=== PATIENT | female | born 1985 | race Native Hawaiian/Other Pacific Islander ===

== ENCOUNTER 2017-12-07 14:01 | Emergency (ER) | payer BC ==
[2017-12-07] MEDS ORDERED: Sodium Chloride 0.9% 1,000 ML IV STA ×2 (14:18→18:39)
--- NOTE | 2017-12-07 14:41 | ED PDOC ---
HPI: Chest Pain Time Seen by Provider: 12/07/17 14:16 Chief Complaint (Nursing): Chest Pain Chief Complaint (Provider): Chest Pain History Per: Patient History/Exam Limitations: no limitations Current Symptoms Are (Timing): Still Present Additional Complaint(s): 32 year old female presents to the emergency department with a complaint of an fast increased heart rate for the past week and chest tightness since last night , 12/06/2017. Patient is currently 21 weeks with twin gestation, . Denies leg swelling, leg pain, calf pain, cough, or fever. Past Medical History Reviewed: Historical Data, Nursing Documentation, Vital Signs Vital Signs: Last Vital Signs Temp 98.6 F 12/07/17 19:33 Pulse 114 H 12/07/17 19:33 Resp 18 12/07/17 19:33 BP 130/70 12/07/17 19:33 Pulse Ox 99 12/09/17 13:23 - Medical History PMH: No Chronic Diseases - Family History Family History: States: Unknown Family Hx - Living Arrangements Living Arrangements: With Family - Social History Current smoker - smoking cessation education provided: No - Home Medications Home Medications: Ambulatory Orders Medication Instructions Recorded No Known Home Med 12/07/17 - Allergies Allergies/Adverse Reactions: Allergies Allergy/AdvReac Type Severity Reaction Status Date / Time No Known Allergies Allergy Verified 12/07/17 14:09 Review of Systems ROS Statement: Except As Marked, All Systems Reviewed And Found Negative (As per HPI, otherwise negative) Constitutional: Negative for: Fever Cardiovascular: Positive for: Other (Chest tightness) Respiratory: Negative for: Cough Musculoskeletal: Negative for: Leg Pain (or swelling), Other (Calf pain) Physical Exam - Reviewed Nursing Documentation Reviewed: Yes Vital Signs Reviewed: Yes - Physical Exam Appears: Positive for: No Acute Distress Head Exam: Positive for: NORMAL INSPECTION Skin: Positive for: Normal Color, Warm, Dry Eye Exam: Positive for: Normal appearance Cardiovascular/Chest: Positive for: Tachycardia (with regular rhythm). Negative for: Murmur Respiratory: Positive for: Normal Breath Sounds. Negative for: Accessory Muscle Use, Respiratory Distress Gastrointestinal/Abdominal: Positive for: Normal Exam, Soft. Negative for: Tenderness Extremity: Positive for: Normal ROM. Negative for: Pedal Edema Neurologic/Psych: Positive for: Alert, Oriented (x3) - Laboratory Results Result Diagrams: 12/07/17 14:51 12/07/17 14:51 - ECG ECG Rhythm: Positive for: Sinus Tachycardia (122 bpm), Nonspecific Changes (T wave abnormalities) O2 Sat by Pulse Oximetry: 99 (RA) Pulse Ox Interpretation: Normal Medical Decision Making Medical Decision Making: Time: 1427 Initial Impression: Chest tightness in setting of known Initial Plan: EKG CMP TSH Troponin I CBC w/ diff D Dimer PTT & Prothrombin Sodium Chloride 1L IV Urinalysis Duplex US Reevaluation Discussed risks and benefits of CT with IV contrast. With included risks to fetus and differential of pulmonary embolism. Time: 1500 --Patient transferred to Dr. Vale LUQUE. --Pending Duplex US and decision on CT. Scribe Attestation: Documented by Jenifer Briggs, acting as a scribe for Lis Mueller MD. Provider Scribe Attestation: All medical record entries made by the Scribe were at my direction and personally dictated by me. I have reviewed the chart and agree that the record accurately reflects my personal performance of the history, physical exam, medical decision making, and the department course for this patient. I have also personally directed, reviewed, and agree with the discharge instructions and disposition. Disposition - Clinical Impression Clinical Impression: Chest pain, Hyperthyroidism affecting , Sinus tachycardia - Patient ED Disposition Is Patient to be Admitted: No - Disposition Referrals: Saul Turner MD [Staff Provider] - Disposition: Transfer of Care (Dr. Collazo) Disposition Time: 15:00 Condition: STABLE Additional Instructions: Return for worsening. Follow up with Dr Turner within 2-3 days. Instructions: Hyperthyroidism (Overactive Thyroid), Chest Pain, Sinus Tachycardia (DC) Patient Signed Over To: Jason Collazo
[2017-12-07 14:55] LABS: BASO % 0.2 % (0.0-2.0); EOS % 0.3 % (0.0-4.0); HEMOGLOBIN 11.3 g/dL (12.0-16.0); LYMPH # 1.3 K/uL (1.0-4.3); LYMPH % 11.8 % (20.0-40.0); MEAN CORPUSCULAR HEMOGLOBIN 31.8 pg (27.0-31.0); MEAN CORPUSCULAR HGB CONC 35.3 g/dL (33.0-37.0); MEAN PLATELET VOLUME 7.6 fl (7.2-11.7); MONO # 0.9 K/uL (0.0-0.8); MONO % 8.7 % (0.0-10.0); NEUT # 8.3 K/uL (1.8-7.0); RBC 3.55 Mil/uL (3.80-5.20); RED CELL DISTRIBUTION WIDTH 12.8 % (11.5-14.5); WHITE BLOOD COUNT 10.6 K/uL (4.8-10.8)
[2017-12-07 15:07] LABS: ALBUMIN 3.7 g/dL (3.5-5.0); ALT/SGPT 24 U/L (9-52); AST/SGOT 19 U/L (14-36); BLOOD UREA NITROGEN 5 mg/dl (7-17); CALCIUM 8.8 mg/dL (8.4-10.2); GFR AFRICAN-AMERICAN > 60; GFR NON-AFRICAN AMERICAN > 60
--- NOTE | 2017-12-07 15:16 | ED PDOC ---
- Laboratory Results Result Diagrams: 12/07/17 14:51 12/07/17 14:51 - ECG O2 Sat by Pulse Oximetry: 99 (RA) Pulse Ox Interpretation: Normal Medical Decision Making Medical Decision Making: Time: 1500 --Patient endorsed from Dr. Mueller to me. --Pending Duplex US and decision on CT. Time: 15:28 EXTREMITY US FINDINGS: COMMON FEMORAL VEIN: Right CFV: Unremarkable. Left CFV: Unremarkable. SUPERFICIAL FEMORAL VEIN: Right SFV: Unremarkable. Left SFV: Unremarkable. POPLITEAL VEIN: Right Popliteal: Unremarkable. Left Popliteal: Unremarkable. POSTERIOR TIBIAL VEIN: Right PTV: Unremarkable. Left PTV: Unremarkable. OTHER FINDINGS: None. IMPRESSION: No evidence of deep venous thrombosis. Time: 1623 --Signed out against medical advice. Patient was informed that signing out against medical advice (AMA) before physician determines diagnosis or recommends discharge is considered high-risk especially with symptoms patient presented to the emergency room with. Time: 1632 --Convinced patient to stay and receive a CT because she is still tachycardiac and has an elevated D Dimer of 1027 (High). Discussed risks and benefits of CT with IV contrast. With included risks to fetus and differential of pulmonary embolism. . --Angio Chest PE CT Time: 18:01 CT Angio Findings: Visualized portions of the inferior thyroid gland appear unremarkable. The mediastinal and hilar vascular structures appear within normal limits. The heart appears within normal limits of size. Streak artifact limits evaluation. No large central or segmental pulmonary embolus evident. No focal consolidation. No pleural effusion. No pneumothorax. No suspicious pulmonary nodules measuring greater than 5 mm. Limited visualized portions of the upper abdomen appear grossly unremarkable. No acute osseous abnormality is detected. Impression: Streak artifact limits evaluation. No large central or segmental pulmonary embolus identified. Time: 19:13 Reviewed labs and TSH level is 0.06. Reviewed CT chest findings. Discussed case with Dr. Turner, patient's Psych Coordinator. No concern for PE, but suspicion of hyperthyroidism. Advised to follow up with Dr. Turner in office for further management. Scribe Attestation: Documented by Jenifer Briggs and Keyshawn Houser, acting as scribes for Jason Collazo MD. Provider Scribe Attestation: All medical record entries made by the Scribe were at my direction and personally dictated by me. I have reviewed the chart and agree that the record accurately reflects my personal performance of the history, physical exam, medical decision making, and the department course for this patient. I have also personally directed, reviewed, and agree with the discharge instructions and disposition. Disposition Discussed With : Saul Turner Doctor Will See Patient In The: Office Counseled Patient/Family Regarding: Studies Performed, Diagnosis, Need For Followup - Clinical Impression Clinical Impression: Chest pain, Hyperthyroidism affecting , Sinus tachycardia - POA Present On Arrival: None - Disposition Referrals: Saul Turner MD [Staff Provider] - Disposition: Routine/Home Disposition Time: 19:13 Condition: GOOD Additional Instructions: Return for worsening. Follow up with your PCP tomorrow. Instructions: Hyperthyroidism (Overactive Thyroid), Chest Pain, Sinus Tachycardia (DC)
[2017-12-07 15:19] LABS: SQUAMOUS EPITHIAL < 1 /hpf (0-5); URINE BACTERIA RARE (<OCC); URINE BILIRUBIN NEGATIVE (NEGATIVE); URINE BLOOD NEGATIVE (NEGATIVE); URINE CLARITY SLIGHTY-CLOUDY (Clear); URINE COLOR YELLOW (YELLOW); URINE GLUCOSE (UA) >=500 mg/dL (Normal); URINE LEUKOCYTE ESTERASE NEG Leu/uL (Negative); URINE PROTEIN NEGATIVE (NEGATIVE); URINE UROBILINOGEN 0.2-1.0 mg/dL (0.2-1.0)
[2017-12-07 15:24] LABS: INR 0.9 (0.9-1.2); PARTIAL THROMBOPLASTIN TIME 27.3 Seconds (25.6-37.1); PROTHROMBIN TIME 10.1 Seconds (9.8-13.1)
--- NOTE | 2017-12-07 15:29 | US ---
PROCEDURE: Bilateral lower extremity venous duplex Doppler. HISTORY: Tachy, COMPARISON: None available. TECHNIQUE: Bilateral common femoral, superficial femoral, popliteal and posterior tibial veins were evaluated. Flow was assessed with color Doppler, compressibility, assessment of phasic flow and augmentation response. FINDINGS: COMMON FEMORAL VEIN: Right CFV: Unremarkable. Left CFV: Unremarkable. SUPERFICIAL FEMORAL VEIN: Right SFV: Unremarkable. Left SFV: Unremarkable. POPLITEAL VEIN: Right Popliteal: Unremarkable. Left Popliteal: Unremarkable. POSTERIOR TIBIAL VEIN: Right PTV: Unremarkable. Left PTV: Unremarkable. OTHER FINDINGS: None. IMPRESSION: No evidence of deep venous thrombosis.
[2017-12-07] MEDS ORDERED: Iodixanol 320 MG/ML 100 ML BOTTLE IV ONE (16:41)
[2017-12-07] MEDS ORDERED: Sodium Chloride 0.9% 100 ML ONE (16:41)
[2017-12-07 17:05] VITALS: PULSE 114; TEMP 98.6
[2017-12-07 17:43] VITALS: O2SAT 99
--- NOTE | 2017-12-07 18:03 | CT ---
CTA chest PE protocol Indication: Chest pain, 21 weeks Technique: Contiguous axial images were obtained through the chest with intravenous contrast enhancement. Sagittal and coronal reconstructions were generated and reviewed. This CT exam was performed using 1 or more of the following dose reduction techniques: Automated exposure control, adjustment of the MAA and/or kV according to patient size, and/or use of iterative reconstruction technique. IV Contrast: 70 mL Visipaque 320 Radiation dose (DLP): 245.65 MGy-cm. Comparison: None available. Findings: Visualized portions of the inferior thyroid gland appear unremarkable. The mediastinal and hilar vascular structures appear within normal limits. The heart appears within normal limits of size. Streak artifact limits evaluation. No large central or segmental pulmonary embolus evident. No focal consolidation. No pleural effusion. No pneumothorax. No suspicious pulmonary nodules measuring greater than 5 mm. Limited visualized portions of the upper abdomen appear grossly unremarkable. No acute osseous abnormality is detected. Impression: Streak artifact limits evaluation. No large central or segmental pulmonary embolus identified.
[2017-12-07 19:33] VITALS: BP 130/70; RESP 18
[2017-12-07 20:19] LABS: T4 7.74 ug/dl (5.5-11.0)
[2017-12-07 20:32] LABS: T3 0.953 nmol/L (1.49-2.60)
--- NOTE | 2017-12-08 13:38 | CARD ---
APPROVED REPORT EKG Measurement Heart [id number] <Conclusion> Sinus tachycardia Nonspecific T wave abnormality Abnormal ECG
== END 2017-12-07 19:34 | disposition home or self-care (01) ==
LOC: H.ER 14:01
DX: O99.282 Endocrine, nutritional and metabolic diseases complicating pregnancy, second trimester (principal); O26.892 Other specified pregnancy related conditions, second trimester; Z3A.21 21 weeks gestation of pregnancy; E05.90 Thyrotoxicosis, unspecified without thyrotoxic crisis or storm
CPT/HCPCS: 71275; 80053; 81003; 84436; 84443; 84480; 84484; 85025; 85378; 85610; 85730; 93005; 93970; 96360; 99283; J7040; Q9967

== ENCOUNTER 2018-01-03 13:26 | Emergency (ER) | payer BC ==
--- NOTE | 2018-01-03 16:04 | OBDCSUM ---
Datetime: 01/03/2018 14:58 Discharged to, Provider: Home Follow up at, Provider: Private MD (SIGNAL TECHNICIAN) Disch Instr Activity: Normal activity Disch Instr Diet: Regular Discharge Diet restrict Prov: Please follow any restrictions given to you by your SIGNAL TECHNICIAN Discharge Instructions, Provider: Routine instructions given Discharge Diagnosis, Provider: False Labor - Undelivered Discharge Time: 01/03/2018 15:30 Follow up in weeks, Provider: Next schedule appointment Disch Referrals: None
--- NOTE | 2018-01-03 16:05 | OBHP ---
Datetime: 01/03/2018 14:56 IP Adm Impression: , intrauterine IP Admit Plan: Observation/Evaluation; Discharge home Admit Comment, IP Provider: 32 yo G1 at 25+2 wks w/ IVF- conceived di/di twin , sent from [facility] u/s because she reported to the metal numerical tool programmer that she was having ctxns every 10 minutes last night. Pt reports that she had ctxns every 20-25 minutes last night and every 10 minutes on Mon. night. P t denies ctxns currently, VB, LOF, and reports x 2. Pt received her care w/ [facility] w/ Dr. Angelika santos. Pt has polyhydramnios w/ elevated 1 hr glucola. Pt had 3 hr GTT done today. Per the sonograp her at [facility] u/s, cervix was 5 cm long and closed this am. PMH: Healthy PSH: None Meds: PNVs All: NKDA Soc hx: Pt denies tobacco, alcohol, and illicit drug use Fam hx: N/c Head Cager hx: menarche at 15 yo, regular periods, denies STDs and abn paps PE: AFVSS Gen'l: pt appears comfortable lying in bed Heart: RRR Chest: Lungs CTS b/l Abdomen: soft, NT, gravid Ext: NT, no edema EFM: as above [place]arden: as above A/P: 32 yo G1 at 25+2 wks w/ IVF-conceived di/di twins w/ c/o ctxns last night, currently not cont racting. Ua and urine cx sent. Pt discharged home w/ PT precautions. Pt has a [facility] o n 01/11/2018. Extremities - PN: Normal Abdomen - PN: Normal Back - PN: Normal Lungs - PN: Normal Heart - PN: Normal Neurologic - PN: Normal General - PN: Normal FHR - Baseline A Provider: 140's Contraction Comments Provider: 1 / hour EGA AdmitDate IP: 25.2 IP Chief Complaint: Uterine contractions NICHD Variability Prov Fetus A: Moderate 6-25bpm NICHD Decel Fetus A IP Provider: None
[2018-01-03 16:06] VITALS: BMI 22.7
[2018-01-03 16:57] LABS: SQUAMOUS EPITHIAL 1 /hpf (0-5); URINE BACTERIA OCC (<OCC); URINE BILIRUBIN NEGATIVE (NEGATIVE); URINE BLOOD NEGATIVE (NEGATIVE); URINE CLARITY SLIGHTY-CLOUDY (Clear); URINE COLOR YELLOW (YELLOW); URINE GLUCOSE (UA) 150 mg/dL (Normal); URINE LEUKOCYTE ESTERASE LARGE Leu/uL (Negative); URINE PROTEIN NEGATIVE (NEGATIVE); URINE UROBILINOGEN 0.2-1.0 mg/dL (0.2-1.0)
[2018-01-04 02:47] VITALS: BP 132/82; PULSE 108; TEMP 98.3
== END 2018-01-03 13:30 | disposition home or self-care (01) ==
LOC: H.EROB2 13:26
DX: O40.2XX2 Polyhydramnios, second trimester, fetus 2 (principal); O26.92 Pregnancy related conditions, unspecified, second trimester; R10.2 Pelvic and perineal pain; Z3A.25 25 weeks gestation of pregnancy

== ENCOUNTER 2018-01-17 16:07 | Emergency (ER) | payer BC ==
[2018-01-17 17:04] VITALS: BMI 23.1
[2018-01-17] MEDS: Betamethasone Soluspan 30 mg/5mL Inj Susp IM ONE (18:00)
[2018-01-18 00:15] VITALS: BP 117/60; PULSE 101
== END 2018-01-17 19:20 | disposition home or self-care (01) ==
LOC: H.EROB2 16:07
DX: O26.842 Uterine size-date discrepancy, second trimester (principal); Z3A.27 27 weeks gestation of pregnancy
CPT/HCPCS: 96372; 99281; J0702

== ENCOUNTER 2018-01-18 17:38 | Emergency (ER) | payer BC ==
[2018-01-17 17:04] VITALS: BMI 23.1
[2018-01-18] MEDS ORDERED: Betamethasone Soluspan 30 mg/5mL Inj Susp IM ONE (18:09)
[2018-01-18] MEDS ORDERED: Fluconazole 150 MG TAB PO ONE (19:14)
[2018-01-18 21:01] LABS: SPECIMEN COMMENT SL CLOUDY
[2018-01-19 03:32] VITALS: BP 115/54; PULSE 100; O2SAT 100
--- NOTE | 2018-01-19 17:23 | OBHP ---
Datetime: 01/18/2018 18:03 IP Adm Impression: , intrauterine IP Chief Complaint Other: short cervix Admit Comment, IP Provider: CC: "Steriod inj" HPI: 32 , twin gestation @ 27.3 wks IUP presents to [facility] for 2nd steriod inj. Endorsing occasi onal ctx x 2 weeks, low intensity. Endorsing good FM, no LOF, occasional ctx, and no VB. Occasional v aginal discharge. MD: Dr. Turner ObHx: prime PMH: denies SurgH: denies FH: denies SH: denies ETOH, smoking and illict drug use Allergies: NKDA Meds: PNV PE GEN: NAD Cardio: S1S2 no additional heart sounds Resp: clear breath sounds b/l Abdomen: gravid, NT, BS+ Neuro: AAO x 3 Ext: no edema, NT FM: 140 catagory I U/S 01/17/18: Cervicle funneling measuring 1.3x2.0cm. Speculum: cervix closed, white cheezy discharge noted on exam. A/P: 32 YO , twin gestation, @ 27.3 wks IUP is seen in [facility] for 2nd betamethasone. -continue FM -administer BM -will monitor pt -FFN -on speculum pt has white, cheezy discharge noted on vagianal canal. Clotrimazole cream. Pt discussed with Dr. Edi Nur pgy I Addendum: I saw and examined patient. Patient received a second dose betamethasone. Patient reported feeling some cramping. After IV fluid hydration and observation, patient reports no complaints and is feelin g better. Both maternal well-being and well-being reassuring at this time. Patient discharged h ome with labor precautions. Pelvic Type - PN: Adequate Extremities - PN: Normal Abdomen - PN: Normal Back - PN: Not Done Breast - PN: Not Done Lungs - PN: Normal Heart - PN: Not Done Thyroid - PN: Normal Neurologic - PN: Normal HEENT - PN: Normal FHR - Baseline A Provider: 140 EGA AdmitDate IP: 27.3 Vital Signs Provider: Reviewed; Within Normal Limits IP Chief Complaint: Other NICHD Variability Prov Fetus A: Moderate 6-25bpm NICHD Accel Fetus A IP Provider: [id number] FHR Category Provider Fetus A: Category I Genitourinary Exam: Normal DTRs - PN: Not Done Datetime: 01/17/2018 17:37 IP Admit Plan: Observation/Evaluation; Discharge home General - PN: Normal
== END 2018-01-18 21:10 | disposition home or self-care (01) ==
LOC: H.EROB2 17:38
DX: O26.92 Pregnancy related conditions, unspecified, second trimester (principal); R10.2 Pelvic and perineal pain; Z3A.27 27 weeks gestation of pregnancy; Z23 Encounter for immunization
CPT/HCPCS: 82731; 96372; 99281; J0702

== ENCOUNTER 2018-01-25 16:27 | Emergency (ER) | payer BC ==
[2018-01-25 16:28] VITALS: BMI 23.5
--- NOTE | 2018-01-25 17:10 | OBHP ---
Datetime: 01/25/2018 16:39 IP Adm Impression: , intrauterine IP Chief Complaint Other: Shortened cervical length IP Admit Plan Other: Transfer to tertiary care facility Admit Comment, IP Provider: 32-year-old at 28 weeks and 3 days gestational age with twin gesta tion transfer to L_D from office due to cervical length measurement of 0.6 cm. Patient without compla ints at this time. Patient denies any contractions, vaginal bleeding, leakage of fluids. Patient repo rts good movement. Patient has been monitored for shortened cervical length. Patient already re ceived 1 full course of steroids. Past medical history none Past surgical history none Medications vitamins Obstetrical history Social history no tobacco, no drugs, no alcohol heart tracing: Twins a and B baseline 140s to 150s, moderate baseline variability, positive accelerations, no dec elerations Tocometer: No contractions, areas of irritability Assessment: Twin gestation at 20 weeks gestational age shortened cervix. No evidence of labor at this time. Maternal well-being and well-being reassuring at this time. Plan: Discussed plan MSM. Plan to transfer patient to tertiary care facility with level 3 NICU for obser vation. I discussed plan with patient and all patient questions answered. Transfer process started. Extremities - PN: Normal Abdomen - PN: Normal Back - PN: Normal HEENT - PN: Normal General - PN: Normal Contraction Comments Provider: Irritability IP Hx Assessment: The History has been Reviewed and is Current EGA AdmitDate IP: 28.3 Vital Signs Provider: Reviewed; Within Normal Limits IP Chief Complaint: Other
[2018-01-25 23:46] VITALS: BP 125/89; PULSE 107; RESP 18; TEMP 98.4; O2SAT 98
== END 2018-01-25 18:10 | disposition home or self-care (01) ==
LOC: EDSTATUS 16:27 → H.EROB2 16:27
DX: O26.872 Cervical shortening, second trimester (principal); Z3A.20 20 weeks gestation of pregnancy; O30.002 Twin pregnancy, unspecified number of placenta and unspecified number of amniotic sacs, second trimester

== ENCOUNTER 2018-05-08 11:27 | Emergency (ER) | payer BC ==
[2018-05-08 11:27] VITALS: BMI 23.5
[2018-05-08 11:53] VITALS: BP 121/81; PULSE 88; RESP 18; TEMP 98.9; O2SAT 97
--- NOTE | 2018-05-08 12:14 | ED PDOC ---
HPI: Back Time Seen by Provider: 05/08/18 12:03 Chief Complaint (Nursing): Back Pain Chief Complaint (Provider): Back Pain History Per: Patient History/Exam Limitations: no limitations Onset/Duration Of Symptoms: Hrs Current Symptoms Are (Timing): Still Present Additional Complaint(s): 32 y/o female presents to the ED complaining of moderate pain to the sacral region after falling out of bed yesterday at midnight. Patient is concerned for fracture and requests x-ray. Denies taking medications for symptom relief. PMD: None Provided Past Medical History Reviewed: Historical Data, Nursing Documentation, Vital Signs Vital Signs: Last Vital Signs Temp 98.9 F 05/08/18 11:52 Pulse 88 05/08/18 11:52 Resp 18 05/08/18 11:52 BP 121/81 05/08/18 11:52 Pulse Ox 97 05/08/18 11:52 - Medical History PMH: No Chronic Diseases - Surgical History Surgical History: No Surg Hx - Family History Family History: States: Unknown Family Hx - Home Medications Home Medications: Ambulatory Orders Medication Instructions Recorded Ibuprofen [Motrin] 600 mg PO Q8 PRN #21 tab 05/08/18 - Allergies Allergies/Adverse Reactions: Allergies Allergy/AdvReac Type Severity Reaction Status Date / Time No Known Allergies Allergy Verified 01/25/18 16:19 Review of Systems ROS Statement: Except As Marked, All Systems Reviewed And Found Negative Musculoskeletal: Positive for: Back Pain (in the sacral region) Physical Exam - Reviewed Nursing Documentation Reviewed: Yes Vital Signs Reviewed: Yes - Physical Exam Appears: Positive for: No Acute Distress Head Exam: Positive for: ATRAUMATIC Skin: Positive for: Normal Color Eye Exam: Positive for: Normal appearance Neck: Positive for: Normal, Painless ROM Cardiovascular/Chest: Negative for: Bradycardia, Tachycardia Respiratory: Negative for: Accessory Muscle Use, Respiratory Distress Back: Positive for: Normal Inspection, Other (Tenderness to the sacral region. No lumbar tenderness noted. ) Extremity: Positive for: Normal ROM. Negative for: Deformity Neurologic/Psych: Positive for: Alert, Oriented. Negative for: Motor/Sensory Deficits - ECG O2 Sat by Pulse Oximetry: 97 - Progress ED Course And Treament: XRY OF SACRAM/COCCYX: NO FX Medical Decision Making Medical Decision Making: Time: 1210 Plan: -- Sacrum &/or COCCYX (MIN 2VW) XR -- Discussed with patient probability of contusion vs. fracture. Patient is adamant for x-ray. Scribe Attestation: Documented by Theresa Hale, acting as a scribe for Eliseo Torres PA-C. Provider Scribe Attestation: All medical record entries made by the Scribe were at my direction and personally dictated by me. I have reviewed the chart and agree that the record accurately reflects my personal performance of the history, physical exam, medical decision making, and the department course for this patient. I have also personally directed, reviewed, and agree with the discharge instructions and disposition. Disposition - Clinical Impression Clinical Impression: Back contusion - Patient ED Disposition Is Patient to be Admitted: No - Disposition Disposition: Routine/Home Disposition Time: 13:37 Condition: STABLE Prescriptions: Ibuprofen [Motrin] 600 mg PO Q8 PRN #21 tab PRN Reason: Pain, Severe (8-10) Instructions: Contusion (DC)
--- NOTE | 2018-05-08 13:38 | RAD ---
Date of service: 05/08/2018 PROCEDURE: Radiographs of the Sacrum and Coccyx HISTORY: fall COMPARISON: None available. TECHNIQUE: Frontal and lateral views of the sacrum and coccyx FINDINGS: BONES: Sacrum and coccyx unremarkable. No fracture or focal lesion. SACROILIAC JOINTS: Unremarkable. OTHER FINDINGS: None. IMPRESSION: Unremarkable radiographs of the sacrum and coccyx.
== END 2018-05-08 13:53 | disposition home or self-care (01) ==
LOC: H.ER 11:27
DX: S30.0XXA Contusion of lower back and pelvis, initial encounter (principal); W06.XXXA Fall from bed, initial encounter

== ENCOUNTER 2018-09-30 12:05 | Emergency (ER) | payer BC ==
[2018-09-30 12:14] VITALS: TEMP 97.6; BMI 18.8
--- NOTE | 2018-09-30 13:32 | ED PDOC ---
HPI: Influenza Time Seen by Provider: 09/30/18 12:31 Chief Complaint: Flu-like Symptoms History Per: Patient Additional complaint(s):: Cough, congestion, sore throat, fever (tmax 38 degrees Celsius) since . Took 1 dose of Tylenol 2 days ago with resolution of fever but other symptoms persists. States her had the same symptoms before her and has now resolved despite no medical intervention. Denies rash, abd pain, N/V/D, weakness, recent travel, hemoptysis, chest pain, SOB. Of note, pt. did receive her influenza vaccine this season. Past Medical History Reviewed: Historical Data, Nursing Documentation, Vital Signs Vital Signs: Last Vital Signs Temp 97.6 F 09/30/18 12:13 Pulse 99 H 09/30/18 12:13 Resp 16 09/30/18 12:13 BP 121/54 L 09/30/18 12:13 Pulse Ox 99 09/30/18 12:13 - Family History Family History: States: No Known Family Hx - Home Medications Home Medications: Ambulatory Orders Medication Instructions Recorded Ibuprofen [Motrin] 600 mg PO Q8 PRN #21 tab 05/08/18 Benzonatate [Tessalon Perle] 100 mg PO Q8 PRN #30 capsule 09/30/18 RX: Amoxicillin [Amoxil 500 mg Cap] 500 mg PO BID #20 cap 09/30/18 - Allergies Allergies/Adverse Reactions: Allergies Allergy/AdvReac Type Severity Reaction Status Date / Time No Known Allergies Allergy Verified 01/25/18 16:19 Review of Systems ROS Statement: Except As Marked, All Systems Reviewed And Found Negative Constitutional: Positive for: Fever ENT: Positive for: Nose Congestion, Throat Pain Respiratory: Positive for: Cough Physical Exam - Physical Exam Appears: Positive for: Well, Non-toxic, No Acute Distress Skin: Positive for: Normal Color, Warm. Negative for: Rash Eye Exam: Positive for: Normal appearance ENT: Positive for: Normal ENT Inspection Neck: Positive for: Normal, Painless ROM, Supple Cardiovascular/Chest: Positive for: Regular Rate, Rhythm Respiratory: Positive for: CNT, Normal Breath Sounds Gastrointestinal/Abdominal: Positive for: Soft. Negative for: Tenderness Neurologic/Psych: Positive for: Alert, Oriented (x3) - ECG O2 Sat by Pulse Oximetry: 99 - Progress ED Course And Treament: Rapid strep, rapid flu, CXR ordered. Pt. refused CXR. Rapid strep: positive. Amoxicillin PO ordered. Pt. informed of results and advised to f/u with PMD but is to return to ED immediately if symptoms worsen. Disposition - Clinical Impression Clinical Impression: Strep pharyngitis - Patient ED Disposition Is Patient to be Admitted: No - Disposition Referrals: [facility] [Outside] Disposition: Routine/Home Disposition Time: 15:43 Condition: STABLE Additional Instructions: FOLLOW UP WITH PMD FOR FURTHER EVALUATION RETURN TO ED IMMEDIATELY IF SYMPTOMS WORSEN MISSY ALEGRIA, thank you for letting us take care of you today. Your provider was Sukhjinder Ortez MD and you were treated for FLU LIKE SYMPTOMS. The emergency medical care you received today was directed at your acute symptoms. If you were prescribed any medication, please fill it and take as directed. It may take several days for your symptoms to resolve. Return to the Emergency Department if your symptoms worsen, do not improve, or if you have any other problems. Please contact your doctor or call one of the physicians/clinics you have been referred to that are listed on the Patient Visit Information form that is included in your discharge packet. Bring any paperwork you were given at discharge with you along with any medications you are taking to your follow up visit. Our treatment cannot replace ongoing medical care by a primary care provider outside of the emergency department. Thank you for allowing the [facility] team to be part of your care today. If you had an X-Ray or CT scan: A Radiologist will review the ED reading if any change in treatment is needed we will contact you. If you had a blood, urine, or wound culture: It will take several days for the results, if any change in treatment is needed we will contact you. If you had an STI test: It will take 48 hours for the results. Please call after 1 week if you have not heard back. Prescriptions: RX: Amoxicillin [Amoxil 500 mg Cap] 500 mg PO BID #20 cap Benzonatate [Tessalon Perle] 100 mg PO Q8 PRN #30 capsule PRN Reason: Cough Instructions: Strep Throat (DC) Forms: [facility] (Macedonian), [facility] School/Work Excuse Print Language: KINY[place]
[2018-09-30 15:58] VITALS: BP 127/78; PULSE 78; RESP 18
[2018-09-30 17:35] VITALS: O2SAT 99
== END 2018-09-30 15:58 | disposition home or self-care (01) ==
LOC: H.ER 12:05
DX: J02.0 Streptococcal pharyngitis (principal)